=== PATIENT | male | born 1970 | race Caucasian/White ===

== ENCOUNTER → 2018-03-27 | Outpatient (CLI) | payer OTHER ==
--- NOTE | 2018-03-27 12:34 | Diagnostic Imaging Report ---
PROCEDURE: MR imaging cervical spine without contrast. TECHNIQUE: Multiplanar, multisequence MR imaging of the cervical spine was performed without contrast. INDICATION: Bilateral arm and hand numbness. No prior studies are available for comparison. There is some straightening of the normal cervical lordotic curvature. There is minimal retrolisthesis of C5 on C6. The vertebral body marrow signal is normal. No geographic marrow lesion is seen. There is multilevel degenerative disc disease, greatest at C4-C5, C5-C6 and C6-C7 levels with disc space narrowing and desiccation. Cervical cord shows normal signal intensity. C2-C3: No central canal or neural foraminal stenosis is identified. C3-C4: Unremarkable. C4-C5: Endplate osteophytes indent the ventral thecal sac. Central canal remains patent. Right neural foramen is patent. Left-sided uncovertebral joint degenerative change does result in moderate neural foraminal narrowing. The right neural foramen is patent. C5-C6: Endplate osteophytes and uncovertebral joint degenerative change results in moderate left neural foraminal stenosis. Right neural foramen is patent. There is [id number] central canal narrowing. C6-C7: Broad-based disc/osteophyte complex and uncovertebral joint degenerative change does result in bilateral neural foraminal stenosis. Mild central canal stenosis. C7-T1: Unremarkable. IMPRESSION: Cervical spondylosis with mild central canal and neural foraminal narrowing described level by level above. Dictated by: Dictated on workstation # [id number]
== END ==
LOC: RAD 10:15
PROVIDERS: ATTEND Nurse Practitioner Family
DX: M48.02 Spinal stenosis, cervical region (principal); M50.323 Other cervical disc degeneration at C6-C7 level; M99.71 Connective tissue and disc stenosis of intervertebral foramina of cervical region; M47.812 Spondylosis without myelopathy or radiculopathy, cervical region
CPT/HCPCS: 72141

== ENCOUNTER 2019-05-11 05:35 | Outpatient (CLI) | payer OTHER ==
[~2019-05-11] VITALS: Ht 187 cm; Wt 100.0 kg
[2019-05-11] MEDS ORDERED: CELE200C PO (13:09)
[2019-05-11] MEDS ORDERED: DESL5TAB PO (13:09)
[2019-05-11] MEDS ORDERED: LISI10TA2 PO (13:09)
[2019-05-11] MEDS ORDERED: ATOR10TA PO (13:09)
[2019-05-11] MEDS ORDERED: CLON0.1T PO (13:09)
[2019-05-11] MEDS ORDERED: ZOLP10TA PO (13:09)
== END 2019-05-11 13:10 | disposition home or self-care (01) ==
LOC: PREOP 05:35
PROVIDERS: ATTEND Surgery
DX: Z01.818 Encounter for other preprocedural examination (principal)

== ENCOUNTER 2019-05-20 13:45 | Emergency (ER) | payer OTHER ==
[~2019-05-20] VITALS: Ht 188 cm; Wt 102.0 kg
[~2019-05-20 13:45] MED LIST: ATOR10TA PO; CELE200C PO; CLON0.1T PO; DESL5TAB PO; LISI10TA2 PO; ZOLP10TA PO
[2019-05-20 14:14] LABS: BASOPHILS % (AUTO) 0 % (0-10); EOSINOPHILS # (AUTO) 0.2 10^3/uL (0.0-0.3); EOSINOPHILS % (AUTO) 3 % (0-10); HEMATOCRIT 45 % (40-54); HEMOGLOBIN 15.4 G/DL (13.3-17.7); LYMPHOCYTES # (AUTO) 2.2 X 10^3 (1.0-4.0); LYMPHOCYTES % (AUTO) 39 % (12-44); MEAN CORPUSCULAR HEMOGLOBIN 29 PG (25-34); MEAN CORPUSCULAR HGB CONC 34 G/DL (32-36); MEAN CORPUSCULAR VOLUME 86 FL (80-99); MEAN PLATELET VOLUME 9.6 FL (7.4-10.4); MONOCYTES # (AUTO) 0.4 X 10^3 (0.0-1.0); MONOCYTES % (AUTO) 8 % (0-12); NEUTROPHILS # (AUTO) 2.7 X 10^3 (1.8-7.8); NEUTROPHILS % (AUTO) 49 % (42-75); PLATELET COUNT 176 10^3/uL (130-400); RED CELL DISTRIBUTION WIDTH 12.8 % (10.0-14.5); WHITE BLOOD COUNT 5.6 10^3/uL (4.3-11.0)
[2019-05-20] MEDS ORDERED: NITROGLYCERIN 0.4 MG SL TABS BTL 25'S SL PRN (14:15)
[2019-05-20] MEDS ORDERED: ASPIRIN 81 MG CHEW (CHILDREN'S ASA) PO ONE (14:15)
--- NOTE | 2019-05-20 14:15 | ED Chest Pain ---
General Chief Complaint: Chest Pain Stated Complaint: CHEST PAINS/DIZZINESS Nursing Triage Note: PT STATES CP OFF AND ON FOR ABOUT 2 WEEKS, THOUGHT HE HAD A COLD BUT IT'S GETTING WORSE, NUMBNESS OFF AND ON IN RT ARM. Nursing Sepsis Screen: No Definite Risk Source: patient Exam Limitations: no limitations History of Present Illness Date Seen by Provider: May 20, 2019 Time Seen by Provider: 13:51 Initial Comments The patient resents to ER by private conveyance with chief complaint of the second day of intermittent, waxing and waning sharp chest pain rated as a 3 out of 10 in the substernal region and nonradiating. He does have some numbness and tingling for the past 3 days in his right arm. No history of entrapment syndrome carpal tunnel syndrome etc. No weakness. He is not having any nausea sweats chills he is having some mild shortness of breath and has had a cough productive of clear sputum. No history of COPD or asthma. Quit smoking 10 years ago and quit chewing tobacco 5 years ago. He does not use recreational drugs occasionally drinks bourbon and beer. He has no personal history of coronary disease but his dad was in his 40s when he had his first heart attack. He denies history of diabetes but he does take Lipitor and lisinopril and Catapres for high blood pressure. No history of thyroid disease. He's had no fevers or chills. He does have an occasional history of acid reflux for which she uses Tums, Rolaids with good relief. He does not use any acid reducers. He takes Celebrex and cetirizine. In the past couple days while he was having chest discomfort he did not take any antacids. He has not tried Tylenol or ibuprofen. He does not take aspirin. Allergies and Home Medications Allergies Coded Allergies: No Known Drug Allergies (Unverified , 05/11/19) Home Medications Atorvastatin Calcium 10 Mg Tablet, 10 MG PO HS, (Reported) Celecoxib 200 Mg Capsule, 200 MG PO BID, (Reported) Clonidine HCl 0.1 Mg Tablet, 0.1 MG PO BID, (Reported) Desloratadine 5 Mg Tablet, 5 MG PO DAILY, (Reported) Lisinopril 10 Mg Tablet, 10 MG PO DAILY, (Reported) Zolpidem Tartrate 10 Mg Tablet, 10 MG PO HS, (Reported) Patient Home Medication List Home Medication List Reviewed: Yes Review of Systems Review of Systems Constitutional: No chills, No diaphoresis EENTM: No Blurred Vision, No Double Vision Respiratory: Cough; Denies Shortness of Air, Denies SOA With Exertion Cardiovascular: See HPI, Chest Pain; Denies Edema, Denies Irregular Heart Rate Gastrointestinal: Denies Abdominal Pain, Denies Constipated, Denies Diarrhea, Denies Nausea Genitourinary: Denies Burning, Denies Discharge Musculoskeletal: No back pain, No joint pain Skin: No pruritus, No rash All Other Systems Reviewed Negative Unless Noted: Yes Past Dkynxbo-Ofzuyc-Udbgil Hx Patient Social History Alcohol Use: Occasionally Uses Alcohol Beverage of Choice: Beer, Whiskey, Mason Recreational Drug Use: No Smoking Status: Former Smoker Type Used: Cigarettes Former Smoker, Quit: May 11, 2011 2nd Hand Smoke Exposure: No Recent Foreign Travel: No Contact w/Someone Who Travel: No Recent Infectious Disease Expo: No Recent Hopitalizations: No Physical Abuse: No Sexual Abuse: No Mistreated: No Fear: No Immunizations Up To Date Date of Influenza Vaccine: Mar 08, 2019 Seasonal Allergies Seasonal Allergies: Yes Past Medical History Surgeries: No Respiratory: No Cardiac: Yes High Cholesterol, Hypertension Neurological: No Sexually Transmitted Disease: No HIV/AIDS: No Genitourinary: No Gastrointestinal: Yes Gastroesophageal Reflux Musculoskeletal: Yes (HANDS) Rheumatoid Arthritis Endocrine: No HEENT: Yes (GLASSES) Loss of Vision: Denies Hearing Impairment: Denies Cancer: No Psychosocial: Yes Anxiety Integumentary: Yes (PRE CA ON THE FACE REMOVED) Blood Disorders: No Adverse Reaction/Blood Tranf: No (N/A) Physical Exam Vital Signs Vital Signs - First Documented 05/20/19 13:49 Temp 35.9 Pulse 75 Resp 20 B/P (MAP) 172/101 (124) Pulse Ox 98 O2 Delivery Room Air Capillary Refill : Less Than 3 Seconds Height, Weight, BMI Height: '" Weight: lbs. oz. kg; 28.00 BMI Method: General Appearance: No Apparent Distress, WD/WN, Anxious HEENT: PERRL/EOMI, Pharynx Normal, Moist Mucous Membranes Neck: Full Range of Motion, Normal Inspection Respiratory: Chest Non Tender, Lungs Clear, Normal Breath Sounds, No Accessory Muscle Use, No Respiratory Distress Cardiovascular: Regular Rate, Rhythm, No Edema, Normal Peripheral Pulses Gastrointestinal: Non Tender, Soft Extremity: Normal Capillary Refill, Normal Inspection, Normal Range of Motion, Non Tender, No Calf Tenderness, No Pedal Edema Neurologic/Psychiatric: Alert, Oriented x3, No Motor/Sensory Deficits Skin: Normal Color, Warm/Dry Progress/Results/Core Measures Results/Orders Lab Results Laboratory Tests Test 05/20/19 13:52 05/20/19 16:58 Range/Units White Blood Count 5.6 4.3-11.0 10^3/uL Red Blood Count 5.31 4.35-5.85 10^6/uL Hemoglobin 15.4 13.3-17.7 G/DL Hematocrit 45 40-54 % Mean Corpuscular Volume 86 80-99 FL Mean Corpuscular Hemoglobin 29 25-34 PG Mean Corpuscular Hemoglobin Concent 34 32-36 G/DL Red Cell Distribution Width 12.8 10.0-14.5 % Platelet Count 176 130-400 10^3/uL Mean Platelet Volume 9.6 7.4-10.4 FL Neutrophils (%) (Auto) 49 42-75 % Lymphocytes (%) (Auto) 39 12-44 % Monocytes (%) (Auto) 8 0-12 % Eosinophils (%) (Auto) 3 0-10 % Basophils (%) (Auto) 0 0-10 % Neutrophils # (Auto) 2.7 1.8-7.8 X 10^3 Lymphocytes # (Auto) 2.2 1.0-4.0 X 10^3 Monocytes # (Auto) 0.4 0.0-1.0 X 10^3 Eosinophils # (Auto) 0.2 0.0-0.3 10^3/uL Basophils # (Auto) 0.0 0.0-0.1 10^3/uL Prothrombin Time 13.2 12.2-14.7 SEC INR Comment 1.0 0.8-1.4 Activated Partial Thromboplast Time 29 24-35 SEC Sodium Level 141 135-145 MMOL/L Potassium Level 3.9 3.6-5.0 MMOL/L Chloride Level 107 98-107 MMOL/L Carbon Dioxide Level 28 21-32 MMOL/L Anion Gap 6 5-14 MMOL/L Blood Urea Nitrogen 17 7-18 MG/DL Creatinine 1.05 0.60-1.30 MG/DL Estimat Glomerular Filtration Rate > 60 BUN/Creatinine Ratio 16 Glucose Level 120 H 70-105 MG/DL Calcium Level 9.0 8.5-10.1 MG/DL Corrected Calcium 8.8 8.5-10.1 MG/DL Magnesium Level 2.0 1.6-2.4 MG/DL Total Bilirubin 0.4 0.1-1.0 MG/DL Aspartate Amino Transf (AST/SGOT) 28 5-34 U/L Alanine Aminotransferase (ALT/SGPT) 59 H 0-55 U/L Alkaline Phosphatase 64 40-136 U/L Myoglobin 27.8 10.0-92.0 NG/ML Troponin I < 0.028 < 0.028 <0.028 NG/ML Total Protein 6.9 6.4-8.2 GM/DL Albumin 4.3 3.2-4.5 GM/DL Lipase 22 8-78 U/L My Orders Orders - TUCKER COPELAND Ekg Tracing (05/20/19 13:46) Continuous Ekg Monitoring (05/20/19 13:46) Cbc With Automated Diff (05/20/19 14:07) Magnesium (05/20/19 14:07) Chest 1 View, Ap/Pa Only (05/20/19 14:07) Comprehensive Metabolic Panel (05/20/19 14:07) Myoglobin Serum (05/20/19 14:07) Protime With Inr (05/20/19 14:07) Partial Thromboplastin Time (05/20/19 14:07) O2 (05/20/19 14:07) Lipid Panel (05/21/19 06:00) Ed Iv/Invasive Line Start (05/20/19 14:07) Lipase (05/20/19 14:07) Nitroglycerin 0.4 Mg Btl 25's (Nitrostat (05/20/19 14:15) Aspirin Chewable Tablet (Baby Aspirin Ch (05/20/19 14:15) Troponin I (05/20/19 13:52) Troponin I (05/20/19 17:00) Echo W Doppler/Color Flow (05/20/19 15:31) Medications Given in ED Current Medications Medications Dose Ordered Sig/Diana Route Start Time Stop Time Status Last Admin Dose Admin Aspirin 324 mg ONCE ONCE PO 05/20/19 14:15 05/20/19 14:16 DC 05/20/19 14:20 324 MG Nitroglycerin 0.4 mg UD PRN SL 05/20/19 14:15 05/20/19 14:20 0.4 MG Vital Signs/I&O 05/20/19 05/20/19 13:49 13:59 Temp 35.9 Pulse 75 Resp 20 B/P (MAP) 172/101 (124) Pulse Ox 98 O2 Delivery Room Air Room Air Blood Pressure Mean: 124 Progress Progress Note #1: Time: 14:16 Progress Note While he endorses shortness of breath he has no tachycardia or hypoxia. He is not on any beta blockers to mask attack tachycardia. Well's score for PE 0.0 points; Low risk group: 1.3% chance of PE in an ED population. Plan to give him 324 mg of aspirin to chew and swallow followed by nitroglycerin and do a cardiac workup. The pain is not reproducible to direct palpation its persistent. If the nitroglycerin does not help and may try a GI cocktail. He does have a lot of risk factors including his early-onset familial history, hypertension, hyperlipidemia and distant history of smoking. Progress Note #2: Time: 14:55 Progress Note The pain almost went away with a first dose of nitroglycerin. Heart score 5 points. Delta troponin at 1700. Initial ECG Impression Date: May 20, 2019 Initial ECG Impression Time: 13:50 Initial ECG Rate: 72 Initial ECG Rhythm: Normal Sinus Initial ECG Intervals: Normal Initial ECG Impression: Normal Initial ECG Comparisson: No Previous ECG Available Comment No clinically relevant ST elevation or depression. Diagnostic Imaging Diagonstic Imaging: Xray Plain Films/CT/US/NM/MRI: chest Comments [facility], [place] NAME: [facility] REC#: [id number] PT STATUS: REG ER : 1970 PHYSICIAN: TUCKER COPELAND MD ADMIT DATE: 05/20/19/ER Draft Date of Exam:05/20/19 CHEST 1 VIEW, AP/PA ONLY INDICATION: Chest pain radiating to the right arm. TIME OF EXAM: 2:26 p.m. COMPARISON: No prior studies are available for comparison. FINDINGS: The heart size is normal. The pulmonary vascularity is unremarkable. The lungs are clear. No infiltrate, effusion or pneumothorax is detected. IMPRESSION: No acute cardiopulmonary process is detected. Dictated on workstation # [id number] Dict: 05/20/19 1430 Trans: 05/20/19 1432 [id number] Interpreted by: BUCKY GERBER MD Electronically signed by: Reviewed: Reviewed by Me Consults : Consulting Physician: Robson CALDERÓN MD Consults Notes Discussed case EKG and labs and Dr. Calderón would recommend a 3 hour troponin after the first one. If it's negative then she would sit the patient up for a stress test first thing tomorrow morning outpatient. He would also set up outpatient follow-up at his clinic. Departure Impression Primary Impression: Chest pain Qualified Codes: R07.9 - Chest pain, unspecified Disposition: HOME, SELF-CARE Condition: Improved Departure-Patient Inst. Decision time for Depature: 17:38 Referrals: [facility] [place] Primary Care Physician TIFFANY CLEARY APRN (Family) Primary Care Physician Patient Instructions: Chest Pain (DC) Add. Discharge Instructions: Follow-up instructions to get a stress test set up tomorrow. Return to the ER if you Begin to have consistent, severe chest pain or shortness of breath. All discharge instructions reviewed with patient and/or family. Voiced understanding. Work/School Note: Work Release Form Date Seen in the Emergency Department: May 20, 2019 Return to Work: May 22, 2019 Restrictions: No Restrictions TUCKER COPELAND May 20, 2019 14:15
[2019-05-20 14:20] LABS: PROTHROMBIN TIME PATIENT 13.2 SEC (12.2-14.7)
[2019-05-20 14:30] LABS: ALANINE AMINOTRANSFERASE 59 U/L (0-55); ALBUMIN 4.3 GM/DL (3.2-4.5); ALKALINE PHOSPHATASE 64 U/L (40-136); BILIRUBIN,TOTAL 0.4 MG/DL (0.1-1.0); BUN/CREATININE RATIO 16; CARBON DIOXIDE 28 MMOL/L (21-32); CHLORIDE 107 MMOL/L (98-107); CREATININE SERUM 1.05 MG/DL (0.60-1.30); GFR ESTIMATED > 60; GLUCOSE 120 MG/DL (70-105); LIPASE 22 U/L (8-78); POTASSIUM 3.9 MMOL/L (3.6-5.0); SODIUM 141 MMOL/L (135-145); TOTAL PROTEIN 6.9 GM/DL (6.4-8.2)
--- NOTE | 2019-05-20 14:33 | Diagnostic Imaging Report ---
INDICATION: Chest pain radiating to the right arm. TIME OF EXAM: 2:26 p.m. COMPARISON: No prior studies are available for comparison. FINDINGS: The heart size is normal. The pulmonary vascularity is unremarkable. The lungs are clear. No infiltrate, effusion or pneumothorax is detected. IMPRESSION: No acute cardiopulmonary process is detected. Dictated by: Dictated on workstation # [id number]
--- NOTE | 2019-05-20 15:41 | Consultation-Cardiology ---
HPI-Cardiology Cardiology Consultation: Date of Consultation 05/20/19 Date of Admission Attending Physician Admitting Physician [facility] Consulting Physician Robson CALDERÓN MD HPI: Time Seen by a Provider: 15:38 Chief Complaint: Chest pain This is a 48-year-old gentleman who has history of hyperlipidemia, hypertension and premature family history of CAD who presents with chest pain. His been having off-and-on chest pain. 3/10 intensity. Substernal. No radiation. Associated with numbness and tingling in the right arm. No other associated cardiac symptoms. No exacerbating or relieving factors. His father had an MO in the 40s. He denies active smoking. The patient takes medication for hypertension and hyperlipidemia. No other cardiac symptoms. Review of Systems-Cardiology Review of Systems Constitutional: As described under HPI; No As described under HPI, No no symptoms reported, No chills, No fever, No lightheadedness Eyes: No As described under HPI, No no symptoms reported, No blindness, No blurred vision, No contact lenses, No drainage, No decreased acuity, No foreign body sensation, No pain, No vision change Ears/Nose/Throat: No As described under HPI, No no symptoms reported, No chronic hearing loss, No ear discharge, No ear pain, No nasal drainage, No ulcerations Respiratory: No no symptoms reported; As described under HPI; No As described under HPI, No cough, No orthopnea, No shortness of breath, No SOB with excertion Cardiovascular: No no symptoms reported; As described under HPI; No As described under HPI; chest pain; No edema, No irregular heart rate, No lightheadedness, No palpitations Gastrointestinal: No no symptoms reported, No As described under HPI, No abdomen distended, No abdominal pain, No blood streaked bowels, No constipation, No diarrhea, No nausea, No vomiting, No stool coloration changes Genitourinary: No As described under HPI, No burning, No dysuria, No discharge, No frequency, No flank pain, No hematuria, No urgency Skin: No rash, No skin related problems, No ulcerations Psychiatric/Neurological: No anxiety, No depression, No seizure, No focal weakness, No syncope Hematologic: No bleeding abnormalities All Other Systems Reviewed Negative Unless Noted: Yes VSP-Oyekqz-Hirfur Hx Patient Social History Alcohol Use: Occasionally Uses Recreational Drug Use: No Smoking Status: Former Smoker Type Used: Cigarettes 2nd Hand Smoke Exposure: No Recent Foreign Travel: No Recent Infectious Disease Expo: No Immunizations Up To Date Date of Influenza Vaccine: Mar 08, 2019 Past Medical History PMH As described under Assessment. Allergies and Home Medications Allergies Coded Allergies: No Known Drug Allergies (Unverified , 05/11/19) Home Medications Atorvastatin Calcium 10 Mg Tablet, 10 MG PO HS, (Reported) Celecoxib 200 Mg Capsule, 200 MG PO BID, (Reported) Clonidine HCl 0.1 Mg Tablet, 0.1 MG PO BID, (Reported) Desloratadine 5 Mg Tablet, 5 MG PO DAILY, (Reported) Lisinopril 10 Mg Tablet, 10 MG PO DAILY, (Reported) Zolpidem Tartrate 10 Mg Tablet, 10 MG PO HS, (Reported) Patient Home Medication List Home Medication List Reviewed: Yes Physical Exam-Cardiology Physical Exam Vital Signs/I&O 05/20/19 05/20/19 13:49 13:59 Temp 35.9 Pulse 75 Resp 20 B/P (MAP) 172/101 (124) Pulse Ox 98 O2 Delivery Room Air Room Air Capillary Refill : Less Than 3 Seconds Constitutional: appears stated age, AAO x 3; No apparent distress; well- developed, well-nourished HEENT: PERRL; No discharge; hearing is well preserved, oral hygience is good; No ulceration, No xanthelasmas are seen Neck: No carotid bruit; carotid pulses are 2 + bilaterally Respiratory: chest is bilaterally symmetric, lungs clear to auscultation Cardiovascular: regular rate-rhythm; No irregularly irregular, No extra beats, No parasternal heave is noted, No JVD, No edema, No bradycardia, No tachycardia, No point of maximal impulse, No cardiac thrills are palpable; S1 and S2; No gallop/S3, No gallop/S4, No diastolic murmur, No systolic murmur, No friction rub, No click, No other Gastrointestinal: soft, audible bowel sounds; No spleenomegaly Rectal: deferred Extremities: normal range of motion, non-tender, normal inspection; No clubbing, No cyanosis; no lower extremity edema bilateral; No significant edema Neurologic/Psychiatric: no motor/sensory deficits, alert, normal mood/affect, oriented x 3, power is 5/5 both on sides Skin: normal color, warm/dry; No rash, No ulcerations Data Review Labs Laboratory Tests 05/20/19 13:52: White Blood Count 5.6, Red Blood Count 5.31, Hemoglobin 15.4, Hematocrit 45, Mean Corpuscular Volume 86, Mean Corpuscular Hemoglobin 29, Mean Corpuscular Hemoglobin Concent 34, Red Cell Distribution Width 12.8, Platelet Count 176, Mean Platelet Volume 9.6, Neutrophils (%) (Auto) 49, Lymphocytes (%) (Auto) 39, Monocytes (%) (Auto) 8, Eosinophils (%) (Auto) 3, Basophils (%) (Auto) 0, Neutrophils # (Auto) 2.7, Lymphocytes # (Auto) 2.2, Monocytes # (Auto) 0.4, Eosinophils # (Auto) 0.2, Basophils # (Auto) 0.0, Prothrombin Time 13.2, INR Comment 1.0, Activated Partial Thromboplast Time 29, Sodium Level 141, Potassium Level 3.9, Chloride Level 107, Carbon Dioxide Level 28, Anion Gap 6, Blood Urea Nitrogen 17, Creatinine 1.05, Estimat Glomerular Filtration Rate > 60, BUN/Creatinine Ratio 16, Glucose Level 120H, Calcium Level 9.0, Corrected Calcium 8.8, Magnesium Level 2.0, Total Bilirubin 0.4, Aspartate Amino Transf (AST/SGOT) 28, Alanine Aminotransferase (ALT/SGPT) 59H, Alkaline Phosphatase 64, Myoglobin 27.8, Troponin I < 0.028, Total Protein 6.9, Albumin 4.3, Lipase 22 ECG Impression ECG Initial ECG Rhythm: Normal Sinus Initial ECG Impression: Normal A/P-Cardiology Assessment/Admission Diagnosis Chest pain, Hypertension, Hyperlipidemia Plan Chest pain in a patient with 3 risk factors for CAD including premature family history of MO, hypertension and hyperlipidemia. First set of cardiac enzymes is negative. EKG does not show any acute ST-T wave abnormalities. We will do another set of cardiac enzymes in 3 hours. If cardiac enzymes are negative he will be discharged to follow-up in the morning with echocardiogram and nuclear stress testing. If the cardiac enzymes are positive he'll be admitted for coronary angiography. This was explained to the patient. Hypertension: Continue lisinopril. Blood pressure is mildly elevated. Hyperlipidemia: Continue atorvastatin. Thank you for your consultation. Please call me if you have any questions. Lesa Calderón MD, FACP, FACC, FSCAI, FHRS, CCDS Interventional Cardiology Cardiac Electrophysiology Vascular Medicine and Endovascular Interventions Clinical Quality Measures AMI/AHF: ASA po Prior to arrival: Robson Lipscomb MD May 20, 2019 15:41
[2019-05-20 17:46] VITALS: BP 149/88
== END 2019-05-20 17:46 | disposition home or self-care (01) ==
LOC: EDUNIT# 13:45 → ER 13:46
DX: R07.9 Chest pain, unspecified (principal); I10 Essential (primary) hypertension; E78.00 Pure hypercholesterolemia, unspecified; K21.9 Gastro-esophageal reflux disease without esophagitis; M06.9 Rheumatoid arthritis, unspecified; F41.9 Anxiety disorder, unspecified; Z87.891 Personal history of nicotine dependence
CPT/HCPCS: 36415; 71045; 80053; 83690; 83735; 83874; 84484; 85025; 85610; 85730; 93005; 93306

== ENCOUNTER → 2019-05-27 | Outpatient (CLI) | payer OTHER ==
[~2019-05-27] VITALS: Ht 187 cm; Wt 102.0 kg
[~2019-05-27] MED LIST changes: +CATHETER FLUSH 10 ML SYR IV PRN; +REGADENOSON 0.4 MG/5 ML SYR (LEXISCAN) IV ONE
[2019-05-27 09:23] VITALS: BP 155/90
[2019-05-27 09:25] VITALS: BP 167/92
== END ==
LOC: CARD 07:45
PROVIDERS: ATTEND Internal Medicine Interventional Cardiology
DX: R07.9 Chest pain, unspecified (principal)
CPT/HCPCS: 78452; 93017

== ENCOUNTER 2020-03-07 12:01 | Outpatient (CLI) | payer OTHER ==
[~2020-03-07 12:01] MED LIST changes: -CATHETER FLUSH 10 ML SYR IV PRN; -REGADENOSON 0.4 MG/5 ML SYR (LEXISCAN) IV ONE
== END 2020-03-07 12:28 | disposition home or self-care (01) ==
LOC: SLEEP 12:01
PROVIDERS: ATTEND Nurse Practitioner
DX: G47.33 Obstructive sleep apnea (adult) (pediatric) (principal); G47.10 Hypersomnia, unspecified; J30.9 Allergic rhinitis, unspecified; J34.3 Hypertrophy of nasal turbinates; J34.89 Other specified disorders of nose and nasal sinuses

== ENCOUNTER 2020-04-30 14:18 | Emergency (ER) | payer OTHER ==
[~2020-04-30] VITALS: Ht 182.8 cm; Wt 102.2 kg
[~2020-04-30 14:18] MED LIST changes: +CLN.1T PO; -CLON0.1T PO
[2020-04-30] MEDS ORDERED: LORazepam INJ 2 MG/ML (ATIVAN) VIAL IVP PRN (14:30)
--- NOTE | 2020-04-30 14:31 | NUR ---
UPDATE GIVEN TO .
--- NOTE | 2020-04-30 14:34 | ED Chest Pain ---
General Stated Complaint: CP Source: patient Exam Limitations: no limitations History of Present Illness Date Seen by Provider: Apr 30, 2020 Time Seen by Provider: 14:30 Initial Comments To ER with a sudden onset of warmth and tightness in his chest. This began while he was driving to the [place]. 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 He does have a history of anxiety and hypertension. No history of coronary artery disease himself. He is not diabetic. His father did have a heart attack in his 40s. He has some chronic unchanged tingling in the left forearm that begins at the elbow and extends distally to the pinky and ring finger. Timing/Duration: changing over time Severity/Quality: moderate, pressure Radiation: no radiation Activities at Onset: none Prior CP/Workup: no prior chest pain ASA po CARDIOVASCULAR DISEASE SPECIALIST: No NTG SL CARDIOVASCULAR DISEASE SPECIALIST: No Associated Symptoms: denies symptoms Allergies and Home Medications Allergies Coded Allergies: No Known Drug Allergies (Unverified , 05/11/19) Home Medications Atorvastatin Calcium 10 Mg Tablet, 10 MG PO HS, (Reported) Celecoxib 200 Mg Capsule, 200 MG PO BID, (Reported) Clonidine HCl 0.1 Mg Tablet, 0.1 MG PO BID, (Reported) Desloratadine 5 Mg Tablet, 5 MG PO DAILY, (Reported) Lisinopril 10 Mg Tablet, 10 MG PO DAILY, (Reported) Zolpidem Tartrate 10 Mg Tablet, 10 MG PO HS, (Reported) Patient Home Medication List Home Medication List Reviewed: Yes Review of Systems Review of Systems Constitutional: see HPI EENTM: No Symptoms Reported Respiratory: No Symptoms Reported; Denies Cough, Denies Shortness of Air, Denies SOA With Exertion, Denies SOA at Rest Cardiovascular: See HPI, Chest Pain Gastrointestinal: See HPI; Denies Abdominal Pain, Denies Nausea Genitourinary: No Symptoms Reported Musculoskeletal: no symptoms reported Skin: no symptoms reported Psychiatric/Neurological: No Symptoms Reported Endocrine: No Symptoms Reported Hematologic/Lymphatic: No Symptoms Reported Past Nxtlqax-Cgiqyh-Klefes Hx Patient Social History Alcohol Beverage of Choice: Beer, Whiskey, [place] Type Used: Cigarettes Former Smoker, Quit: May 11, 2011 2nd Hand Smoke Exposure: No Recent Hopitalizations: No Immunizations Up To Date Date of Influenza Vaccine: Mar 08, 2019 Seasonal Allergies Seasonal Allergies: Yes Past Medical History Surgeries: No Respiratory: No Cardiac: Yes High Cholesterol, Hypertension Neurological: No Sexually Transmitted Disease: No HIV/AIDS: No Genitourinary: No Gastrointestinal: Yes Gastroesophageal Reflux Musculoskeletal: Yes (HANDS) Rheumatoid Arthritis Endocrine: No HEENT: Yes (GLASSES) Loss of Vision: Denies Hearing Impairment: Denies Cancer: No Psychosocial: Yes Anxiety Integumentary: Yes (PRE CA ON THE FACE REMOVED) Blood Disorders: No Adverse Reaction/Blood Tranf: No (N/A) Physical Exam Vital Signs Vital Signs - First Documented 04/30/20 14:21 Temp 36.5 Pulse 90 Resp 18 B/P (MAP) 147/87 (107) Pulse Ox 97 O2 Delivery Room Air Capillary Refill : Height, Weight, BMI Height: '" Weight: lbs. oz. kg; 29.16 BMI Method: General Appearance: No Apparent Distress, WD/WN, Anxious (He denies feeling anxious though he does appear anxious. He has a tremor of the right arm which she states just started. He also states that when he was driving his left hand spasmed.), Other (alert oriented no distress. pleasant gentleman. ) Neck: Full Range of Motion, Normal Inspection Respiratory: Lungs Clear, Normal Breath Sounds, No Accessory Muscle Use, No Re spiratory Distress Cardiovascular: Regular Rate, Rhythm, Normal Peripheral Pulses Gastrointestinal: Normal Bowel Sounds, Non Tender, Soft Extremity: Normal Capillary Refill, Normal Inspection Neurologic/Psychiatric: Alert, Oriented x3 Skin: Normal Color, Warm/Dry Progress/Results/Core Measures Results/Orders Lab Results Laboratory Tests Test 04/30/20 14:28 04/30/20 16:29 Range/Units White Blood Count 3.6 L 4.3-11.0 10^3/uL Red Blood Count 5.17 4.30-5.52 10^6/uL Hemoglobin 15.3 13.3-17.7 g/dL Hematocrit 46 40-54 % Mean Corpuscular Volume 89 80-99 fL Mean Corpuscular Hemoglobin 30 25-34 pg Mean Corpuscular Hemoglobin Concent 33 32-36 g/dL Red Cell Distribution Width 12.6 10.0-14.5 % Platelet Count 163 130-400 10^3/uL Mean Platelet Volume 9.9 9.0-12.2 fL Immature Granulocyte % (Auto) 0 % Neutrophils (%) (Auto) 46 42-75 % Lymphocytes (%) (Auto) 36 12-44 % Monocytes (%) (Auto) 13 H 0-12 % Eosinophils (%) (Auto) 4 0-10 % Basophils (%) (Auto) 1 0-10 % Neutrophils # (Auto) 1.6 L 1.8-7.8 10^3/uL Lymphocytes # (Auto) 1.3 1.0-4.0 10^3/uL Monocytes # (Auto) 0.5 0.0-1.0 10^3/uL Eosinophils # (Auto) 0.1 0.0-0.3 10^3/uL Basophils # (Auto) 0.0 0.0-0.1 10^3/uL Immature Granulocyte # (Auto) 0.0 0.0-0.1 10^3/uL D-Dimer < 0.27 0.00-0.49 UG/ML Sodium Level 139 135-145 MMOL/L Potassium Level 3.7 3.6-5.0 MMOL/L Chloride Level 103 98-107 MMOL/L Carbon Dioxide Level 23 21-32 MMOL/L Anion Gap 13 5-14 MMOL/L Blood Urea Nitrogen 17 7-18 MG/DL Creatinine 1.05 0.60-1.30 MG/DL Estimat Glomerular Filtration Rate > 60 BUN/Creatinine Ratio 16 Glucose Level 125 H 70-105 MG/DL Calcium Level 8.8 8.5-10.1 MG/DL Corrected Calcium 8.6 8.5-10.1 MG/DL Magnesium Level 2.1 1.6-2.4 MG/DL Total Bilirubin 0.5 0.1-1.0 MG/DL Aspartate Amino Transf (AST/SGOT) 34 5-34 U/L Alanine Aminotransferase (ALT/SGPT) 50 0-55 U/L Alkaline Phosphatase 66 40-136 U/L Troponin I < 0.028 < 0.028 <0.028 NG/ML B-Type Natriuretic Peptide < 10.0 <100.0 PG/ML Total Protein 7.2 6.4-8.2 GM/DL Albumin 4.3 3.2-4.5 GM/DL My Orders Orders - TIMOTHY ZAMORANO SIDE SEAM ENVELOPE MACHINE OPERATOR Cbc With Automated Diff (04/30/20 14:27) Comprehensive Metabolic Panel (04/30/20 14:27) Ekg Tracing (04/30/20 14:27) BNP (04/30/20 14:27) Troponin I (04/30/20 14:27) Magnesium (04/30/20 14:27) Lorazepam Injection (Ativan Injection) (04/30/20 14:30) Chest 1 View, Ap/Pa Only (04/30/20 14:27) Fibrin Degradation Products (04/30/20 14:27) Troponin I (04/30/20 16:24) Medications Given in ED Current Medications Medications Dose Ordered Sig/Diana Route Start Time Stop Time Status Last Admin Dose Admin Lorazepam 0.5 mg ONCE PRN IVP 04/30/20 14:30 04/30/20 14:34 0.5 MG Vital Signs/I&O 04/30/20 04/30/20 14:21 15:05 Temp 36.5 Pulse 90 74 Resp 18 1 B/P (MAP) 147/87 (107) 130/76 Pulse Ox 97 96 O2 Delivery Room Air Room Air Departure Communication (Admissions) [id number] with Dr. Parker, agrees with plan of care to repeat troponin at 2-hour leonidas. Discharged home for outpatient follow-up if negative. Pt is feeling better at this time. Impression Primary Impression: Chest pain Qualified Codes: R07.9 - Chest pain, unspecified Additional Impression: Ulnar nerve entrapment at elbow Disposition: 01 HOME, SELF-CARE Condition: Stable Departure-Patient Inst. Decision time for Depature: 16:58 Referrals: [facility] [place] (PCP) Primary Care Physician TIFFANY CLEARY APRN (Family) Primary Care Physician ZEENAT PARKER MD Patient Instructions: Chest Pain Add. Discharge Instructions: 1. Your repeat troponin (cardiac blood test) is still negative which indicates that this is not a heart attack. You should still follow-up with cardiology. I have given you the phone number to Dr. Parker whom I have spoken to today. Return to ER for any concerns. Follow-up with your doctor next week. It would also be a good idea to start an acid cake wringer daily like over the counter prilosec daily. TIMOTHY ZAMORANO APRN Apr 30, 2020 14:33
[2020-04-30 14:41] LABS: BASOPHILS % (AUTO) 1 % (0-10); EOSINOPHILS # (AUTO) 0.1 10^3/uL (0.0-0.3); EOSINOPHILS % (AUTO) 4 % (0-10); HEMATOCRIT 46 % (40-54); HEMOGLOBIN 15.3 g/dL (13.3-17.7); LYMPHOCYTES # (AUTO) 1.3 10^3/uL (1.0-4.0); LYMPHOCYTES % (AUTO) 36 % (12-44); MEAN CORPUSCULAR HEMOGLOBIN 30 pg (25-34); MEAN CORPUSCULAR HGB CONC 33 g/dL (32-36); MEAN CORPUSCULAR VOLUME 89 fL (80-99); MEAN PLATELET VOLUME 9.9 fL (9.0-12.2); MONOCYTES # (AUTO) 0.5 10^3/uL (0.0-1.0); MONOCYTES % (AUTO) 13 % (0-12); NEUTROPHILS # (AUTO) 1.6 10^3/uL (1.8-7.8); NEUTROPHILS % (AUTO) 46 % (42-75); PLATELET COUNT 163 10^3/uL (130-400); WHITE BLOOD COUNT 3.6 10^3/uL (4.3-11.0)
[2020-04-30 14:50] LABS: ALBUMIN 4.3 GM/DL (3.2-4.5); CHLORIDE 103 MMOL/L (98-107); POTASSIUM 3.7 MMOL/L (3.6-5.0); SODIUM 139 MMOL/L (135-145)
[2020-04-30 14:51] LABS: CALCIUM 8.8 MG/DL (8.5-10.1)
[2020-04-30 14:52] LABS: GLUCOSE 125 MG/DL (70-105)
--- NOTE | 2020-04-30 14:52 | Diagnostic Imaging Report ---
EXAMINATION: Chest 1 view. HISTORY: Chest pain. COMPARISON: 05/20/2019. FINDINGS: The lung volumes are normal. No focal consolidation is seen. No large pleural effusion or pneumothorax is seen. The cardiomediastinal silhouette is normal in size and contour. No acute osseous abnormality is seen. IMPRESSION: No acute pleuroparenchymal process. Dictated by: Dictated on workstation # [id number]
[2020-04-30 14:53] LABS: TOTAL PROTEIN 7.2 GM/DL (6.4-8.2)
[2020-04-30 14:54] LABS: BILIRUBIN,TOTAL 0.5 MG/DL (0.1-1.0); CARBON DIOXIDE 23 MMOL/L (21-32)
[2020-04-30 14:56] LABS: ALKALINE PHOSPHATASE 66 U/L (40-136); CREATININE SERUM 1.05 MG/DL (0.60-1.30); GFR ESTIMATED > 60
[2020-04-30 14:57] LABS: BUN/CREATININE RATIO 16
[2020-04-30 14:59] LABS: ALANINE AMINOTRANSFERASE 50 U/L (0-55); MAGNESIUM 2.1 MG/DL (1.6-2.4)
--- NOTE | 2020-04-30 15:02 | NUR ---
TO ROOM TIGHTNESS IN CHEST BETTER MONITOR SR.
--- NOTE | 2020-04-30 15:16 | NUR ---
UDATE TO INFORMED LAB OK AND Ruma ZAMORANO APRN HAD TALKED TO [facility] ABD WE WILL REPEAT THE TROPONIN AT 430PM IF NORMAL WILL DISCHARGE.
[2020-04-30 17:12] VITALS: BP 121/70
== END 2020-04-30 17:12 | disposition home or self-care (01) ==
LOC: EDUNIT# 14:18 → ER 14:19
DX: R07.9 Chest pain, unspecified (principal); G56.22 Lesion of ulnar nerve, left upper limb; F41.9 Anxiety disorder, unspecified; I10 Essential (primary) hypertension; E78.00 Pure hypercholesterolemia, unspecified; Z87.891 Personal history of nicotine dependence
CPT/HCPCS: 36415; 71045; 80053; 83735; 83880; 84484; 85025; 85379; 93005

== ENCOUNTER 2020-09-02 17:17 | Emergency (ER) | payer OTHER ==
[~2020-09-02] VITALS: Ht 187.9 cm; Wt 99.0 kg
[~2020-09-02 17:17] MED LIST changes: -LISI10TA2 PO; +LISI10TA25 PO
--- NOTE | 2020-09-02 17:36 | ED Lower Extremity ---
General Chief Complaint: Laceration Stated Complaint: L LEG LAC Nursing Triage Note: AMB TO ROOM WAS PARKING A SEGWAY AND RAN INTO DOOR FRAME C/O PAIN IN L LOWER LEG AND LACERATION NOTED. Nursing Sepsis Screen: No Definite Risk Source: patient Exam Limitations: no limitations (MYA MEEKSMED STUDENT) History of Present Illness Date Seen by Provider: Sep 02, 2020 Time Seen by Provider: 17:30 Initial Comments Pt is a 50 year old male with PMH of HTN who presents to the ED for a laceration on his left lopez. He is a police investigator and was parking a seg-way when he ran into a metal door frame and subsequently fell on his sacrum. The metal door frame cut his left anterior leg. He states his only pain is in his LLE and is throbbing. He is able to bear weight on the leg. He states he thinks his most recent tetanus was about 5 years ago. He reports some lightheadedness immediately following the fall, but states this subsided in a few seconds. Denies hitting his head or LOC. Also denies fevers, chills, SOB, chest pain and abdominal pain. Onset: this evening Pain/Injury Location: left leg Method of Injury: other (ran into door frame on seg-way) (MYA MEEKS,KHADIJAH STUDENT) Allergies and Home Medications Allergies Coded Allergies: No Known Drug Allergies (Unverified , 05/11/19) Home Medications Atorvastatin Calcium 10 Mg Tablet, 10 MG PO HS, (Reported) Celecoxib 200 Mg Capsule, 200 MG PO BID, (Reported) Clonidine HCl 0.1 Mg Tablet, 0.1 MG PO BID, (Reported) Desloratadine 5 Mg Tablet, 5 MG PO DAILY, (Reported) Lisinopril 10 Mg Tablet, 10 MG PO DAILY, (Reported) Zolpidem Tartrate 10 Mg Tablet, 10 MG PO HS, (Reported) Patient Home Medication List Home Medication List Reviewed: Yes (MAYRA HIRSCH MD) Review of Systems Constitutional: no symptoms reported EENTM: no symptoms reported Respiratory: No cough, No short of breath Cardiovascular: No chest pain, No edema Gastrointestinal: No abdominal pain, No constipation, No diarrhea, No nausea, No vomiting Genitourinary: no symptoms reported Musculoskeletal: other (left lower leg pain) Skin: other (laceration LLE) Psychiatric/Neurological: Denies Numbness, Denies Weakness (MYA MEEKS MED STUDENT) Past Nwhklev-Bzjxsd-Epijar Hx Patient Social History Alcohol Beverage of Choice: Beer, Whiskey, [place] Type Used: Cigarettes Former Smoker, Quit: May 11, 2011 2nd Hand Smoke Exposure: No Recent Infectious Disease Expo: No Recent Hopitalizations: No (MYA MEEKS MED STUDENT) Immunizations Up To Date Date of Influenza Vaccine: Mar 08, 2019 (MYA MEEKS MED STUDENT) Seasonal Allergies Seasonal Allergies: Yes (MYA MEEKS MED STUDENT) Past Medical History Surgeries: No Respiratory: No Cardiac: Yes High Cholesterol, Hypertension Neurological: No Sexually Transmitted Disease: No HIV/AIDS: No Genitourinary: No Gastrointestinal: Yes Gastroesophageal Reflux Musculoskeletal: Yes (HANDS) Rheumatoid Arthritis Endocrine: No HEENT: Yes (GLASSES) Loss of Vision: Denies Hearing Impairment: Denies Cancer: No Psychosocial: Yes Anxiety Integumentary: Yes (PRE CA ON THE FACE REMOVED) Blood Disorders: No Adverse Reaction/Blood Tranf: No (N/A) (MYA MEEKS MED STUDENT) Physical Exam Vital Signs Vital Signs - First Documented 09/02/20 17:22 Pulse 92 Resp 18 B/P (MAP) 149/66 (93) Pulse Ox 95 (MAYRA HIRSCH MD) Vital Signs Capillary Refill : Less Than 3 Seconds (MYA MEEKS MED STUDENT) Height, Weight, BMI Height: '" Weight: lbs. oz. kg; 28.00 BMI Method: General Appearance: WD/WN, no apparent distress HEENT: PERRL/EOMI Neck: non-tender, supple Cardiovascular: regular rate, rhythm, no edema, no murmur Respiratory: no respiratory distress, no accessory muscle use Gastrointestinal: normal bowel sounds, non tender, soft Legs: right leg non-tender; bilateral leg normal range of motion; left leg abrasions, left leg soft tissue tenderness Neurologic/Tendon: normal sensation, normal motor functions, responds to pain, no evidence tendon injury Neurologic/Psychiatric: alert, normal mood/affect, oriented x 3 Skin: warm/dry, other (3cm linear laceration to left mid anterior leg) (MYA MEEKS MED STUDENT) Procedures/Interventions Wound Location: Lower Extremities Other Wound Location mid anterior left lopez Wound Length (cm): 3 Wound's Depth, Shape: linear, irregular, sub Q Wound Explored: clean Irrigated w/ Saline (ccs): 250 Betadine Prep?: Yes Volume Anesthetic (ccs): 5 Staple Repair: Stapler Skin Precise Progress Open wound was sprayed with lidocaine, skin was wiped with alcohol, anesthesia was provided with lidocaine with epi injection. Wound was then scrubbed and irrigated with normal saline, cleaned with betadine prep and skin was approximated with 3 jaswinder. (MYA MEEKS,MED STUDENT) Progress/Results/Core Measures Results/Orders My Orders Orders - MAYRA HIRSCH MD Dipht,Pertuss(Acell),Tet Adult (Boostrix (09/02/20 17:45) Tibia/Fibula, Left, 2 Views (09/02/20 17:47) Lidocaine/Epi 2% 1:100,000 (Xylocaine/Ep (09/02/20 18:00) (MAYRA HIRSCH MD) Vital Signs/I&O 09/02/20 09/02/20 17:22 18:39 Pulse 92 92 Resp 18 18 B/P (MAP) 149/66 (93) 149/66 (93) Pulse Ox 95 95 (MAYRA HIRSCH MD) Blood Pressure Mean: 93 Diagnostic Imaging Diagonstic Imaging: Xray Plain Films/CT/US/NM/MRI: leg Comments Tib-fib x-ray viewed by me and report reviewed. See report below: NAME: [facility] REC#: [id number] PT STATUS: REG ER : 1970 PHYSICIAN: MAYRA HIRSCH MD ADMIT DATE: 09/02/20/ER Draft Date of Exam:09/02/20 TIBIA/FIBULA, LEFT, 2 VIEWS EXAMINATION: Left tibia and fibular radiographs, 2 views, 4 images. COMPARISON: None. HISTORY: 50-year-old male, left leg laceration. FINDINGS: There is degenerative type patellar enthesopathy. There are limitations of the exam relating to material external to the patient. There is material projecting anteriorly at the level of the mid tibial and fibular diaphysis which may be external to the patient. Recommend correlation. There is no clearly identified definite radiopaque foreign body. There is no identified acute fracture. There is no cortical or aggressive bone destruction. There is degenerative type enthesopathy at the Achilles tendon insertion. IMPRESSION: 1. High attenuation material anteriorly at the level of the mid tibial and fibular diaphysis may be external to the patient. Correlation is needed. 2. No otherwise identified potential radiopaque foreign body. 3. No acute osseous abnormality. Dictated on workstation # [id number] Dict: 09/02/201816 Trans: 09/02/20 182 [facility] [id number] Interpreted by: AHSAN SALINAS MD (MAYRA HIRSCH MD) Departure Impression Primary Impression: Fall on same level Qualified Codes: W18.30XA - Fall on same level, unspecified, initial encounter Additional Impressions: Laceration of leg Qualified Codes: S81.812A - Laceration without foreign body, left lower leg, initial encounter Contusion of leg Qualified Codes: S80.12XA - Contusion of left lower leg, initial encounter Disposition: HOME, SELF-CARE Condition: Improved Departure-Patient Inst. Referrals: [facility]/ (PCP) Primary Care Physician TIFFANY CLEARY APRN (Family) Primary Care Physician Patient Instructions: Laceration Repair With Stetson (DC) Add. Discharge Instructions: Keep the wound clean and dry except for normal showering. Do not submerge until jaswinder are removed. Cover when active or in dirty environments. Otherwise you may leave it open to air. Return in 7 to 10 days to have the jaswinder removed. If the dressing is sticking to the wound, you may apply Vaseline or antibiotic ointment. Monitor for signs of infection such as increasing redness, increasing swelling, puslike drainage, or fever. Return to care if you notice the symptoms. Call with questions or concerns. X-rays showed no injury to the bone. All discharge instructions reviewed with patient and/or family. Voiced understanding. Medical Student Attestation and Attending Note: I have personally interviewed and examined this patient along with Mya Meeks MS 4. I have reviewed student documentation including history, physical, and assessments. I agree with the documentation except where otherwise noted. Exam: General: Alert, oriented, no acute distress, well developed HEENT: Normocephalic and atraumatic Heart: Regular rate and rhythm without murmur Lungs: Clear to auscultation bilaterally with normal effort Extremities: Approximately 3 cm laceration on the anterior left lower leg with localized tenderness to palpation Neuropsych: Alert, oriented, no focal deficits Skin: Laceration as above Wound was anesthetized, cleaned, and approximated with jaswinder by Mya Meeks, MS 4 under my direct supervision. Tetanus booster was administered. (MAYRA HIRSCH MD) MYA MEEKS,MED STUDENT Sep 02, 2020 17:36 MAYRA HIRSCH MD Sep 02, 2020 18:24
[2020-09-02] MEDS ORDERED: TETANUS,DIPTH,PERTUSS P/F (BOOSTRIX) 0.5 ML VIAL IM ONE (17:45)
[2020-09-02] MEDS ORDERED: LIDOCAINE/EPI 2% 1:100,00 (XYLOCAINE) 20 ML VIAL INJ ONE (18:00)
--- NOTE | 2020-09-02 18:22 | Diagnostic Imaging Report ---
EXAMINATION: Left tibia and fibular radiographs, 2 views, 4 images. COMPARISON: None. HISTORY: 50-year-old male, left leg laceration. FINDINGS: There is degenerative type patellar enthesopathy. There are limitations of the exam relating to material external to the patient. There is material projecting anteriorly at the level of the mid tibial and fibular diaphysis which may be external to the patient. Recommend correlation. There is no clearly identified definite radiopaque foreign body. There is no identified acute fracture. There is no cortical or aggressive bone destruction. There is degenerative type enthesopathy at the Achilles tendon insertion. IMPRESSION: 1. High attenuation material anteriorly at the level of the mid tibial and fibular diaphysis may be external to the patient. Correlation is needed. 2. No otherwise identified potential radiopaque foreign body. 3. No acute osseous abnormality. Dictated by: Dictated on workstation # [id number]
[2020-09-02 18:39] VITALS: BP 149/66
== END 2020-09-02 18:45 | disposition home or self-care (01) ==
LOC: EDUNIT# 17:17 → ER 17:19
DX: S81.812A Laceration without foreign body, left lower leg, initial encounter (principal); I10 Essential (primary) hypertension; E78.00 Pure hypercholesterolemia, unspecified; Z23 Encounter for immunization; Z87.891 Personal history of nicotine dependence; W18.09XA Striking against other object with subsequent fall, initial encounter; Y92.481 Parking lot as the place of occurrence of the external cause
CPT/HCPCS: 12011; 73590

== ENCOUNTER 2021-04-20 05:35 | Outpatient (RCR) | payer OTHER ==
[~2021-04-20] VITALS: Ht 190.5 cm; Wt 100.7 kg
[~2021-04-20 05:35] MED LIST changes: +CETI10TA23 PO; +TMSL.4C PO
== END 2021-04-20 13:46 | disposition home or self-care (01) ==
LOC: PREOP 05:35
PROVIDERS: ATTEND Surgery
DX: Z01.812 Encounter for preprocedural laboratory examination (principal); Z12.11 Encounter for screening for malignant neoplasm of colon; K21.9 Gastro-esophageal reflux disease without esophagitis; Z20.822 Contact with and (suspected) exposure to COVID-19
CPT/HCPCS: 87635

== ENCOUNTER 2021-04-24 06:48 | Day surgery (SDC) | payer OTHER ==
[~2021-04-24] VITALS: Ht 190.3 cm; Wt 100.7 kg
[2021-04-24] VITALS (7 sets, daily range): BP systolic 101–145; BP diastolic 63–107
[~2021-04-24 06:48] MED LIST changes: -CETI10TA23 PO; +CETI10TA24 PO
[2021-04-24] MEDS ORDERED: LACTATED RINGERS 1,000 ML IV ONE (07:01)
[2021-04-24] MEDS ORDERED: LACTATED RINGERS 1,000 ML IV STA (07:07)
[2021-04-24] MEDS ORDERED: HURRICAINE EXT TUBE (BENZOCAINE) XX PRN (07:15)
[2021-04-24] MEDS ORDERED: MIDAZOLAM 2 MG/2 ML (VERSED) VIAL ONE (07:16)
[2021-04-24] MEDS ORDERED: PROPOFOL INJECTION 50 ML IV ONE (07:17)
--- NOTE | 2021-04-24 08:29 | Progress Note-Post Operative ---
Post-Operative Progess Note Surgeon (s)/[employer] (s) Surgeon LYNDSEY GOMEZ DO [employer]: na Pre-Operative Diagnosis gerd, screening colonoscopy Post-Operative Diagnosis hiatal hernia, diverticulosis, sigmoid polyp, hemorrhoids Procedure & Operative Findings Date of Procedure 04/24/21 Procedure Performed/Findings egd c biopsies, colonoscopy c hot bx polypectomy Anesthesia Type per ict educator Estimated Blood Loss Estimated blood loss (mL): none Specimens/Packing Specimens Removed antrum, ge, sigmoid polpy LYNDSEY GOMEZ DO Apr 24, 2021 08:29
--- NOTE | 2021-04-24 08:31 | Discharge Inst-Simple/Standard ---
Discharge Inst-Standard Patient Instructions/Follow Up Plan of Care/Instructions/FU: 2 weeks Kirill Activity as Tolerated: Yes Discharge Diet: Regular Diet LYNDSEY GOMEZ DO Apr 24, 2021 08:31
--- NOTE | 2021-04-24 09:13 | Anesthesia-General Post-Op ---
MAC Patient Condition Mental Status/LOC: Same as Preop Cardiovascular: Satisfactory Nausea/Vomiting: Absent Respiratory: Satisfactory Pain: Controlled Complications: Absent Post Op Complications Complications None Follow Up Care/Instructions Patient Instructions None needed. Anesthesiology Discharge Order Discharge Order Patient is doing well, no complaints, stable vital signs, no apparent adverse anesthesia problems. No complications reported per nursing. TATA SCHWARTZ CRNA Apr 24, 2021 09:13
--- NOTE | 2021-04-24 16:54 | OPERATIVE REPORT ---
DATE OF SERVICE: 04/24/2021 PREOPERATIVE DIAGNOSES: Gastroesophageal reflux disease and screening colonoscopy. POSTOPERATIVE DIAGNOSES: Hiatal hernia, diverticulosis, sigmoid colon polyp, internal hemorrhoids. PROCEDURE: EGD with biopsies, colonoscopy with hot biopsy polypectomy. SURGEON: Lyndsey Roy DO ANESTHESIA: Per LACTATION COORDINATOR. ESTIMATED BLOOD LOSS: None. COMPLICATIONS: None. INDICATIONS: The patient is a 50-year-old male with GERD and needing screening colonoscopy. He understands risks and benefits of procedure and wishes to proceed. Consent was signed in the chart. DESCRIPTION OF PROCEDURE: The patient was taken to the endoscopy suite, placed in left lateral recumbent position. Timeout was performed. Scope was inserted in mouth, down the esophagus, stomach and into the duodenum without difficulty. No polyps, masses or ulcerations within the duodenum. Scope was slowly retracted back to stomach where it was further insufflated. Biopsy of the antrum was obtained. No polyps, masses or ulcerations. Scope was retroflexed noting a small moderate sized hiatal hernia. No other pathology. Scope was returned to its normal position, slowly withdrawn to distal esophagus. Biopsy of the GE junction was obtained. Scope was then slowly retracted back until completely removed, noting no other pathology. Digital rectal exam was performed noting internal hemorrhoids. No palpable polyps, masses or ulcerations. Scope was inserted in the rectum, advanced all the way to cecum with minimal difficulty. Prep was adequate. Scope was then slowly retracted back. There were no polyps, masses or ulcerations within the cecum, ascending, transverse, descending colon. In the sigmoid colon, there was some diverticulosis minimally and also 1 polyp, which hot biopsy polypectomy was performed. Scope was then continuously retracted back until the rectum, which was retroflexed, which was noting the internal hemorrhoids. Scope was returned to its normal position, slowly withdrawn until completely removed. The patient tolerated procedure well without any complications, taken to recovery room in stable condition. RECOMMENDATIONS: The patient will continue on current medications. We will await biopsy results. If having significant findings on biopsies, we would then consider starting on a proton pump inhibitor and then converting to H2 padmini for short period of time. The patient with internal hemorrhoids. If these are bothersome, we would consider excision. The patient with a polyp, which we would recommend immediate hot biopsy polypectomy. He will need a repeat colonoscopy in 5 years or if any issues before that time. The patient with diverticulosis, we would recommend high fiber diet. cc: Dr. Rodriguez -- requested, unable to deliver. Job ID: [id number] DocumentID: [id number] Dictated Date: 04/24/2021 08:34:24 Senior Lead Developer Date: 04/24/2021 15:06:02 Dictated By: LYNDSEY ROY DO
== END 2021-04-24 09:03 | disposition home or self-care (01) ==
LOC: ENDO 06:48
PROVIDERS: ATTEND Surgery
DX: Z12.11 Encounter for screening for malignant neoplasm of colon (principal); K21.00 Gastro-esophageal reflux disease with esophagitis, without bleeding; K63.5 Polyp of colon; K64.8 Other hemorrhoids; K44.9 Diaphragmatic hernia without obstruction or gangrene; K57.30 Diverticulosis of large intestine without perforation or abscess without bleeding; K31.89 Other diseases of stomach and duodenum; F41.9 Anxiety disorder, unspecified; F90.9 Attention-deficit hyperactivity disorder, unspecified type; I10 Essential (primary) hypertension; M06.9 Rheumatoid arthritis, unspecified; Z87.891 Personal history of nicotine dependence; Z79.1 Long term (current) use of non-steroidal anti-inflammatories (NSAID); Z79.899 Other long term (current) drug therapy